=== PATIENT | male | born 1985 | race African-American/Black ===

== ENCOUNTER 2020-05-16 13:51 | Emergency (ER) | payer OTHER ==
[~2020-05-16] VITALS: Ht 165.1 cm; Wt 73.0 kg
[2020-05-16] MEDS ORDERED: MORPHINE SULFATE 4 MG/ML CPJ (NOT FOR IM USE) IV STA ×2 (14:11→19:20)
[2020-05-16] MEDS ORDERED: ONDANSETRON HCL 4MG/2ML INJ IV STA ×2 (14:11→19:20)
[2020-05-16] MEDS ORDERED: KETOROLAC 30MG/ML VIAL IV STA (14:11)
[2020-05-16] MEDS ORDERED: MORPHINE SULFATE 4 MG/ML CPJ (NOT FOR IM USE) IV ONE (15:00)
[2020-05-16 15:17] LABS: PROTHROMBIN TIME 10.9 sec (9.6-11.0)
[2020-05-16 15:18] LABS: HEMATOCRIT. 24.2 % (42.0-52.0); HEMOGLOBIN. 7.5 g/dL (14.0-18.0); MEAN CORPUSCULAR HEMOGLOBIN 24.3 pg (28.0-32.0); MEAN CORPUSCULAR VOLUME 78.6 fL (80.0-94.0); MEAN PLATELET VOLUME 6.8 fl (7.4-10.4); PLATELET 237 x1000/uL (130-400); RED BLOOD CELL COUNT 3.08 mill/uL (4.7-6.1); RED CELL DISTRIBUTION WIDTH 23.1 % (11.6-14.6)
[2020-05-16 15:32] LABS: CHLORIDE 104 mEq/L (98-107)
[2020-05-16] MEDS ORDERED: SODIUM CHLORIDE 0.9% 1,000 ML IV ONE ×2 (16:00)
[2020-05-16 16:48] LABS: PLATELET ESTIMATE NORMAL
[2020-05-16 23:11] VITALS: BP 108/69
[2020-05-17 12:48] LABS: NUCLEATED RED BLOOD CELLS 1 /100 WBC
== END 2020-05-16 23:22 | disposition home or self-care (01) ==
LOC: ER 13:51
DX: R10.12 Left upper quadrant pain (principal); R16.1 Splenomegaly, not elsewhere classified; D72.829 Elevated white blood cell count, unspecified; K50.90 Crohn's disease, unspecified, without complications; Z03.818 Encounter for observation for suspected exposure to other biological agents ruled out; Z87.828 Personal history of other (healed) physical injury and trauma; Z85.79 Personal history of other malignant neoplasms of lymphoid, hematopoietic and related tissues; Z20.822 Contact with and (suspected) exposure to COVID-19
CPT/HCPCS: 36415; 71045; 74176; 80053; 82962; 83690; 85025; 85610; 87426; 93005; 96361; 96374; 96375; 96376; 99285; C9803; J1885; J2270; J2405; J7030; U0003

== ENCOUNTER 2020-07-04 08:04 | Emergency (ER) | payer OTHER ==
[~2020-07-04] VITALS: Ht 177.8 cm; Wt 77.0 kg
[2020-07-04] MEDS ORDERED: LIDOCAINE HCL/PF 1% 10 MG/ML 5ML VIAL IJ ONE (08:30)
[2020-07-04] MEDS ORDERED: BACITRACIN ZINC OINT UDPKT TOP ONE (08:30)
[2020-07-04] MEDS ORDERED: ACET-2708 PO (09:32)
[2020-07-04] MEDS ORDERED: CEPH500C2 MT (09:33)
[2020-07-04 09:51] VITALS: BP 127/65
== END 2020-07-04 09:53 | disposition home or self-care (01) ==
LOC: ER 08:13
DX: S51.811A Laceration without foreign body of right forearm, initial encounter (principal); K50.90 Crohn's disease, unspecified, without complications; R16.0 Hepatomegaly, not elsewhere classified; Z85.6 Personal history of leukemia; Z88.3 Allergy status to other anti-infective agents; X99.9XXA Assault by unspecified sharp object, initial encounter; Y93.89 Activity, other specified; Y92.488 Other paved roadways as the place of occurrence of the external cause
CPT/HCPCS: 73090; 99283; J3490; Z7610